=== PATIENT | female | born 1985 | race Caucasian/White ===

== ENCOUNTER 2021-07-30 16:26 | Emergency (ER) | payer OTHER ==
[~2021-07-30] VITALS: Ht 170.2 cm; Wt 59.4 kg
[2021-07-30] MEDS ORDERED: KETOROLAC TROMETHAMINE 30 MG/ML VIAL IM STA (17:18)
[2021-07-30] MEDS ORDERED: NALOXONE HCL 2MG/2 ML SYRINGE IV ONE (18:30)
== END 2021-07-30 19:30 | disposition home or self-care (01) ==
LOC: ER 16:39
DX: M54.2 Cervicalgia (principal); M54.50 Low back pain, unspecified; Z88.0 Allergy status to penicillin; F11.10 Opioid abuse, uncomplicated; V89.2XXA Person injured in unspecified motor-vehicle accident, traffic, initial encounter
CPT/HCPCS: 70450; 72125; 72131; 99284; J1885; J2310